=== PATIENT | male | born 1985 | race Caucasian/White ===

== ENCOUNTER 2019-05-03 08:44 | Emergency (ER) | payer BC, SELFPAY ==
[2019-05-03 08:54] VITALS: BP 154/95; PULSE 63; TEMP 36.4; O2SAT 98
--- NOTE | 2019-05-03 08:58 | ED.GENADUL_ITS ---
Discharge Plan Disposition Patient Disposition: HOME Condition: Good Discharge Details Chief Complaint: EyeProblem Clinical Impression: Conjunctivitis of left eye Primary Care Provider: None,None ED Provider: Curry Ybarra Home Meds and New Rx's Prescriptions: No Action amoxicillin-pot clavulanate [Augmentin] 1 EACH tablet 1 ea PO BID Qty: 10 RF: 0 Discharge Instructions Instructions: Conjunctivitis (ED) Additional Instructions: Please apply the erythromycin ointment to your left eye and the thin strip 3-4 times daily. Please use a warm compress to your left eye to help with any discharge. Please follow-up with your staff anesthetist shortly. If you notice any worsening of your symptoms, or any new symptoms such as vomiting, diarrhea, fever, chills, shortness of breath, chest pain, numbness, weakness, or fainting , please return immediately to the emergency department for reevaluation. Please follow up with your primary care provider as soon as possible for reassessment and reevaluation. As always, it was a pleasure participating in your medical care today. Medical Decision Making This is a pleasant 34-year-old male whose tetanus status is up-to-date who does not wear contact lenses who presents for evaluation of mild redness in her left eye and mild discharge. He had recent URI-like symptoms. Exam d emonstrates a small minimal abrasion in the 10 to 11 o'clock position on the lateral aspect of the pupil. Eversion of the lids for upper and lower shows no retained foreign bodies. He does have a small amount of goopy discharge. Symptoms are concerning for mild abrasion in conjunction with mild conjunctivitis of the left eye. Erythromycin ointment was given here, the remainder of his exam was unremarkable. Patient will be discharged home. Recommend close follow-up with his staff anesthetist. I have extensively reviewed the treatment plan and discharge instructions with the patient. I have addressed all patient concerns at this time. The patient was made aware of what symptoms to monitor for that would warrant a return to the emergency department. Discussed the plan with the patient, they demonstrate verbal understanding and agreement with our assessment and plan at this time. HPI General Date/Time Provider Initiated Documentation: 05/03/19 08:54 . HPI Narrative: 34-year-old male with no significant past medical history who presents today for evaluation of left eye discharge. Last few days he has had mild cough runny nose and congestion, this is resolved but has then led to mild redness and goopy discharge that started 24 hours ago in his left eye. He does admit to a small irritation in the 3 o'clock position of his eye. He does not use contact lenses. He is up-to-date for his tetanus. He denies any recent welding, metal work, or foreign body that he is aware of in his eye. No other complaints at this time. No visual changes. He has used Visine but this is not improved his symptoms. Related Data Home Medications Medication Instructions Recorded Confirmed amoxicillin-pot clavulanate 1 ea PO BID #10 tablet 01/15/16 [Augmentin 875-125 Tablet] Previous Rx's Medication Instructions Recorded amoxicillin-pot clavulanate 1 ea PO BID #10 tablet 01/15/16 [Augmentin 875-125 Tablet] Allergies Allergy/AdvReac Type Severity Reaction Status Date / Time No Known Allergies Allergy Unverified 01/15/16 10:09 General Stated Complaint: EyeProblem DUGLAS: 4 Review of Systems All systems reviewed & are unremarkable except as noted in HPI and below PFSH Social History Smoking/Tobacco Use Status: Never Alcohol Intake: current Alcohol Intake frequency: a few times a week Alcohol type: beer Drug use: Occasionally Substance use type: marijuana Do you feel safe at home: Yes Do you feel safe in your relationship?: Yes Exam Narrative Exam Narrative: 1.Const: Well-nourished, Well-developed, appearing stated age 2.Eyes: PERRL, notable left conjunctival injection. Right eye: : EOMI, PERRL, Peripheral vision intact. Normal vision. No nystagmus. Fundoscopic exam shows normal optic discs and normal vasculature. No clinical signs of septal/orbital cellulitis, no redness around the eye, no proptosis. No hyphema, no signs of trauma around the eye, no periorbital emphysema. No sluggishness of the pupil. No ophthalmoplegia. No afferent pupillary defect. Fluorescein exam is positive for small abrasion and uptake in the 10 o'clock position, negative Cristi sign. Mild goopy discharge in the left eye. 3.ENT: Atraumatic external nose and ears. Moist MM. Neck: Symmetric, trachea midline, No thyromegaly. 4.CVS: +S1/S2, No murmurs or gallops. Peripheral pulses 2+ and equal in all extremities. Brisk capillary refill in all extremities. 5.RESP: Unlabored respiratory effort. Clear to auscultation bilaterally. No wheezes rales or rhonchi 6.GI: Soft, Nontender/Nondistended, No hepatosplenomegaly. No guarding or rebound. 7.MSK: Normocephalic/Atraumatic, Extremities w/o deformity or ttp No cyanosis or clubbing, Normal movement of all extremities 8.Skin: Warm, Dry. No rashes or lesions. 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 Sensation grossly intact, no focal kash rologic deficits. 10.Psych: (AAO) x3. Appropriate mood and affect Course Vital Signs Vital signs: Vital Signs Temperature 36.4 C L 05/03/19 08:54 Pulse 63 05/03/19 08:54 Blood Pressure 154/95 H 05/03/19 08:54 Pulse Oximetry 98 05/03/19 08:54 Temperature 36.4 C L 05/03/19 08:54 Temperature Source Skin 05/03/19 08:54 Pulse 63 05/03/19 08:54 Blood Pressure 154/95 H 05/03/19 08:54 Blood Pressure Position Sitting 05/03/19 08:54 Pulse Oximetry 98 05/03/19 08:54 Oxygen Delivery Method Room Air 05/03/19 08:54 Oxygen Flow Rate 0 05/03/19 08:54
[2019-05-03 09:08] VITALS: BP 154/95; PULSE 63; TEMP 36.4; O2SAT 98
== END 2019-05-03 09:12 | disposition home or self-care (01) ==
PROVIDERS: Emergency Provider Student in an Organized Health Care Education/Training Program
DX: H10.022 Other mucopurulent conjunctivitis, left eye (principal); S05.02XA Injury of conjunctiva and corneal abrasion without foreign body, left eye, initial encounter; X58.XXXA Exposure to other specified factors, initial encounter
CPT/HCPCS: 99283

== ENCOUNTER 2019-05-04 11:53 | Emergency (ER) | payer BC, SELFPAY ==
[2019-05-04 12:11] VITALS: BP 157/88; PULSE 70; RESP 18; TEMP 36.7; O2SAT 100
--- NOTE | 2019-05-04 12:17 | ED.GENADUL_ITS ---
Discharge Plan Disposition Patient Disposition: HOME Condition: Good Discharge Details Chief Complaint: GenMedical Clinical Impression: Acute conjunctivitis of right eye Primary Care Provider: None,None ED Provider: Curry Ybarra Home Meds and New Rx's Prescriptions: New erythromycin 5 mg/gram (0.5 %) ointment 0.5 inch OP TID Qty: 1 RF: 0 Discharge Instructions Instructions: Conjunctivitis (ED) Additional Instructions: Please continue to place a thin strip in your right eye as well 3 times per day. If you notice any worsening of your symptoms, or any new symptoms such as vomiting, diarrhea, fever, chills, shortness of breath, chest pain, numbness, weakness, or fainting , please return immediately to the emergency department for reevaluation. Please follow up with your primary care provider as soon as possible for reassessment and reevaluation. As always, it was a pleasure participating in your medical care today. Medical Decision Making Pleasant 34-year-old male with no significant past medical history, no contact lens use, presents today for evaluation of conjunctivitis in his right eye. He was seen yesterday for conjunctivitis in his left eye, given erythromycin ointment, and he has notable improvement of his symptoms. He had a small corneal abrasion at that time 2, which is otherwise unremarkable. He does not wear contact lenses. Physical exam today demonstrates notable improvement of his left eye, however will be discharged mild conjunctival irritation in his right eye. No other abnormalities, no other concerning red flags of fever chills or pain with moving his eye. No other concerning abnormalities. Patient will be given additional erythromycin ointment for his right eye as well as continuation for the left although the left is notably improved. Discussed red flags for which to return. I have extensively reviewed the treatment plan and discharge instructions with the patient. I have addressed all patient concerns at this time. The patient was made aware of what symptoms to monitor for that would warrant a return to the emergency department. Discussed the plan with the patient, they demonstrate verbal understanding and agreement with our assessment and plan at this time. HPI General Date/Time Provider Initiated Documentation: 05/04/19 11:54 . HPI Narrative: Pleasant 34-year-old male with no significant past medical history, no contact lens use, presents today for evaluation of conjunctivitis in his right eye. He was seen yesterday for conjunctivitis in his left eye, given erythromycin ointment, and he has notable improvement of his symptoms. He had a small corneal abrasion at that time 2, which is otherwise unremarkable. He does not wear contact lenses. Physical exam today demonstrates notable improvement of his left eye, however will be discharged mild conjunctival irritation in his right eye. No other abnormalities, no other concerning red flags of fever chills or pain with moving his eye. Related Data Home Medications Medication Instructions Recorded Confirmed erythromycin 0.5 inch OP TID #1 gm 05/04/19 Previous Rx's Medication Instructions Recorded erythromycin 0.5 inch OP TID #1 gm 05/04/19 Allergies Allergy/AdvReac Type Severity Reaction Status Date / Time No Known Allergies Allergy Unverified 05/04/19 12:20 General Stated Complaint: GenMedical DUGLAS: 5 Review of Systems All systems reviewed & are unremarkable except as noted in HPI and below PFSH Social History Smoking/Tobacco Use Status: Never Alcohol Intake: current Alcohol Intake frequency: a few times a week Alcohol type: beer Drug use: Occasionally Substance use type: marijuana Do you feel safe at home: Yes Do you feel safe in your relationship?: Yes Exam Narrative Exam Narrative: 1.Const: Well-nourished, Well-developed, appearing stated age 2.Eyes: PERRL, bilateral conjunctivitis worse on the right than the left, no significant erythema or edema of the upper or lower lids. Retraction of the lid shows no evidence of foreign body. Symptoms clinically consistent with bacterial conjunctivitis 3.ENT: Atraumatic external nose and ears. Moist MM. Neck: Symmetric, trachea midline, No thyromegaly. 4.CVS: +S1/S2, No murmurs or gallops. Peripheral pulses 2+ and equal in all extremities. Brisk capillary refill in all extremities. 5.RESP: Unlabored respiratory effort. Clear to auscultation bilaterally. No wheezes rales or rhonchi 6.GI: Soft, Nontender/Nondistended, No hepatosplenomegaly. No guarding or rebound. 7.MSK: Normocephalic/Atraumatic, Extremities w/o deformity or ttp No cyanosis or clubbing, Normal movement of all extremities 8.Skin: Warm, Dry. No rashes or lesions. 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 Sensation grossly intact, no focal neurologic deficits. 10.Psych: (AAO) x3. Appropriate mood and affect Course Vital Signs Vital signs: Vital Signs Temperature 36.7 C 05/04/19 12:11 Pulse 70 05/04/19 12:11 Respiratory Rate 18 05/04/19 12:11 Blood Pressure 157/88 H 05/04/19 12:11 Pulse Oximetry 100 05/04/19 12:11 Temperature 36.7 C 05/04/19 12:11 Temperature Source Skin 05/04/19 12:11 Pulse 70 05/04/19 12:11 Respiratory Rate 18 05/04/19 12:11 Respiratory Effort 05/04/19 12:14 Respiratory Depth Normal 05/04/19 12:14 Respiratory Pattern Normal 05/04/19 12:14 Blood Pressure 157/88 H 05/04/19 12:11 Pulse Oximetry 100 05/04/19 12:11 Oxygen Delivery Method Room Air 05/04/19 12:11 Oxygen Flow Rate 0 05/04/19 12:11 Pain Level 0 05/04/19 12:11
[2019-05-04] MEDS: Erythromycin Ophth Oint 3.5 GM TUBE OU (12:21)
== END 2019-05-04 12:22 | disposition home or self-care (01) ==
PROVIDERS: Emergency Provider Student in an Organized Health Care Education/Training Program
DX: H10.021 Other mucopurulent conjunctivitis, right eye (principal)
CPT/HCPCS: 99281; 99283; 99282

== ENCOUNTER → 2023-09-03 15:59 | Outpatient (CLI) | payer BC, SELFPAY ==
--- NOTE | 2023-09-03 15:54 | DI.RAD_ITS ---
Exam(s) XR HAND LT COMPLETE EXAM: XR HAND LT COMPLETE CLINICAL HISTORY: Dog bite, W54.0XXA: evaluate bony lesion and/or osteomyletits and fx. TECHNIQUE: 2D digital imaging was performed of the left hand. Three views were obtained. AP, later al and oblique views were obtained. COMPARISON: No exams were available for comparison FINDINGS: BONES: No acute fracture is present. No bony destructive lesion is seen. JOINTS: No dislocation present. SOFT TISSUE: There is soft tissue swelling of the middle finger. No radiopaque foreign body is ident ified. IMPRESSION: Soft tissue swelling of the middle finger. Otherwise negative examination. DATA REPOSITORY: RADIATION DOSE DELIVERED:
== END ==
PROVIDERS: Visit Provider Nurse Practitioner Family
DX: S69.82XA Other specified injuries of left wrist, hand and finger(s), initial encounter (principal); M79.89 Other specified soft tissue disorders; W54.0XXA Bitten by dog, initial encounter
CPT/HCPCS: 73130

== ENCOUNTER 2023-09-03 16:51 | Outpatient (REF) | payer BC, SELFPAY | END 2023-09-03 16:52 | disposition home or self-care (01) | LOC: LBN 16:51 | PROVIDERS: Visit Provider Nurse Practitioner Family | DX: S61.251A Open bite of left index finger without damage to nail, initial encounter (principal); X58.XXXA Exposure to other specified factors, initial encounter; L08.89 Other specified local infections of the skin and subcutaneous tissue | CPT/HCPCS: 87077; 87070; 87186; 87205 ==

== ENCOUNTER 2024-02-14 17:44 | Emergency (ER) | payer BC, SELFPAY ==
[2024-02-14] VITALS (18 sets, daily range): BP systolic 135–150; BP diastolic 42–103; PULSE 61–70; RESP 16–25; TEMP 36.4; O2SAT 96–99
--- NOTE | 2024-02-14 17:45 | RT.EKG_ITS ---
APPROVED REPORT Exam: Resting ECG Reason for Exam: syncope Patient Location: E HR:62 bpm ECG Measurements Heart Rate 62 AXIS FL 148 P 24 QRSd 140 QRS 32 QT 410 T 42 QTc 416 Conclusion Sinus rhythm 62 RBBB no stemi
[2024-02-14 18:33] LABS: Abs Immature Grans 0.04 10^3/uL (0.0-0.06); Absolute Basophil Count 0.06 10^3/uL (0.0-0.2); Absolute Lymphocyte Count 1.37 10^3/uL (1.2-3.4); Absolute Monocyte Count 0.74 10^3/uL (0.1-0.8); Basophils % 0.5 %; Eosinophils % 0.4 %; HCT 41.1 % (40.0-50.0); HGB 14.5 g/dL (13.5-17.5); Immature Grans % 0.4 %; Lymphocytes % 12.1 %; MCH 30.6 pg (27.0-33.0); MCHC 35.3 % (32.0-36.0); MCV 87 fL (80-95); MPV 9.9 fL (8.0-11.0); Monocytes % 6.5 %; Neutrophils % 80.1 %; Platelet Count 207 10^3/uL (130-400); RBC 4.74 10^6/uL (4.36-5.78); RDW 12.2 % (11.8-14.1); WBC 11.36 10^3/uL (4.4-10.8)
[2024-02-14 18:34] LABS: Absolute Eosinophil Count 0.05 10^3/uL (0.0-0.7)
[2024-02-14 18:49] LABS: Anion Gap 9.7 mmol/L (3-11); BUN 20 mg/dL (7-18); CO2 26.3 mmol/L (21.0-32.0); CREATININE 1.3 mg/dL (0.70-1.30); Calcium 8.9 mg/dL (8.5-10.1); Chloride 106 mmol/L (98-107); Estimated GFR 72.56 (mL/min/1.73m2); Glucose 118 mg/dL (74-106); Potassium 3.4 mmol/L (3.5-5.1); Sodium 142 mmol/L (136-145)
[2024-02-14] MEDS: Potassium Chloride Liquid 20 MEQ PKT 40 MEQ PO (19:26)
--- NOTE | 2024-02-14 19:31 | ED.GENADUL_ITS ---
Discharge Plan Disposition Patient Disposition: Home Discharge Details Clinical Impression: Syncope, Gastrocnemius muscle tear, Hypokalemia Primary Care Provider: Unknown,Unknown ED Provider: Laron Junior Home Meds and New Rx's Prescriptions: No Action diazepam [Valium] 10 mg tablet 10 mg PO ONCE PRN (Reason: premedication) Qty: 1 0RF Rx Instructions: Take 1 hour prior to procedure. 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 You can start taking your blood pressure every day and keep a log for your upcoming appointment * Your kidney function is on the upper limit of normal but still within normal limits. This may be a chronic problem or be related to dehydration. Please increase your water intake. Your blood work will be repeated with your PCP * Your potassium was slightly low today and you were given oral replacement * Return if you have persistent symptoms, chest pain headache or other concerns * Use crutches to help with ambulation with your calf pain. This is likely a partial tear in the muscle and should heal on its own. If it is not improving, a primary care provider can order an MRI * You have been placed on an ER follow-up list and someone should contact you with an appointment in 1 to 2 weeks and establish care with primary care. HPI General Date/Time Provider Initiated Documentation: 02/14/24 17:59 . Limitations to Documentation: no limitations . Information obtained by: patient . HPI Narrative: 38-year-old gentleman without significant past medical history presents for eval uation after a syncopal episode. The patient reports that he was urinating and when he finished he fell the room start to close it and his eyes started to blackout and he knew that he was coming out. He then woke up on the floor. He denies any chest pain, head trauma, headache or visual change. Reports that he did not feel great when he got up, but was not confused. There is no urinary incontinence. He states that since then he has felt a little bit lightheaded. He states earlier in the day at work he had a twisting motion and felt a pop in his calf and since that time he has been hobbling around because of pain located in the right calf. Related Data Home Medications ?Medication ?Instructions ?Recorded ?Confirmed diazepam 10 mg tablet (Valium) 10 mg PO ONCE PRN premedication #1 01/27/24 02/14/24 tab Previous Rx's ?Medication ?Instructions ?Recorded diazepam 10 mg tablet (Valium) 10 mg PO ONCE PRN premedication #1 01/27/24 tab Allergies Allergy/AdvReac Type Severity Reaction Status Date / Time No Known Allergies Allergy Unverified 02/14/24 18:18 General Stated Complaint: Orthopedic DUGLAS: 3 Exam Narrative Exam Narrative: Review of Systems: All systems reviewed & are unremarkable except as noted in HPI and below Well-developed, no acute distress NCAT PERRL, normal conjunctiva RRR no murmur No orthostatic vital sign changes Unlabored respiratory effort clear bilaterally Nondistended abdomen soft nontender Extremities w/o deformity. Right calf with some point tenderness no swelling or edema, Achilles intact no focal neurologic deficits Course Vital Signs Vital signs: Vital Signs Temperature 36.4 C L 02/14/24 17:47 Pulse 69 02/14/24 17:47 Respiratory Rate 18 02/14/24 17:47 Blood Pressure 140/103 H 02/14/24 17:47 Pulse Oximetry 98 02/14/24 17:47 Temperature 36.4 C L 02/14/24 17:47 Temperature Source Temporal Artery Scan 02/14/24 17:47 Pulse 63 02/14/24 19:16 Pulse 64 02/14/24 19:20 Respiratory Rate 18 02/14/24 19:20 Respiratory Effort Normal, Non-Labored 02/14/24 18:07 Blood Pressure 150/64 H 02/14/24 19:16 Blood Pressure Mean 94 02/14/24 19:16 Blood Pressure Position Sitting 02/14/24 17:47 Pulse Oximetry 97 02/14/24 19:20 Oxygen Delivery Method Room Air 02/14/24 17:47 Oxygen Flow Rate 0 02/14/24 17:47 Lab/Test Results Lab/Test Results: Laboratory Tests Range/Units 02/14/24 18:30 WBC (4.4-10.8) 10^3/uL 11.36 H RBC (4.36-5.78) 10^6/uL 4.74 Hgb (13.5-17.5) g/dL 14.5 Hct (40.0-50.0) % 41.1 MCV (80-95) fL 87 MCH (27.0-33.0) pg 30.6 MCHC (32.0-36.0) % 35.3 RDW (11.8-14.1) % 12.2 Plt Count (130-400) 10^3/uL 207 MPV (8.0-11.0) fL 9.9 Immature Gran % % 0.4 Neutrophils % % 80.1 Lymphocytes % % 12.1 Monocytes % % 6.5 Eosinophils % % 0.4 Basophils % % 0.5 Nucleated RBC % (0.0-0.3) % 0.0 Absolute Neutrophils (1.2-6.7) 10^3/uL 9.10 H Absolute Lymphocytes (1.2-3.4) 10^3/uL 1.37 Absolute Monocytes (0.1-0.8) 10^3/uL 0.74 Absolute Eosinophils (0.0-0.7) 10^3/uL 0.05 Absolute Basophils (0.0-0.2) 10^3/uL 0.06 Sodium (136-145) mmol/L 142 Potassium (3.5-5.1) mmol/L 3.4 L Chloride (98-107) mmol/L 106 Carbon Dioxide (21.0-32.0) mmol/L 26.3 Anion Gap (3-11) mmol/L 9.7 BUN (7-18) mg/dL 20 H Creatinine (0.70-1.30) mg/dL 1.3 Est GFR (CKD-EPI 2020) (mL/min/1.73m2) 72.56 Glucose (74-106) mg/dL 118 H Calcium (8.5-10.1) mg/dL 8.9 Medical Decision Making Urgent evaluation of a syncopal episode. Likely provoked micturition syncope. The patient has no orthostatic vital sign changes. He has a normal neurologic exam and did not sustain any head trauma during his syncopal event. EKG was obtained and reviewed and independently interpreted: Sinus 62 right bundle branch block. No priors for comparison. The patient thinks he might be a little bit dehydrated. Blood work was obtained, no leukocytosis or anemia. The potassium level was slightly low when he was given oral replacement. His BUN and creatinine are on the upper limits of normal. He has no prior lab work so it is unclear if this is an acute change or an ongoing process. Given his concerns for dehydration. I recommend increasing oral hydratio at home. I have placed the patient on an ER follow-up for blood pressure recheck as well as dorinda al function recheck. He does not have primary care and they will establish primary care with him. Return precautions advised. For his right calf pain, I suspect this is likely a partial gastroc tear. The Achilles is intact. He was provided crutches to use as needed. Weightbearing as tolerated. Recommend NSAIDs ice elevation. He may need follow-up with outpatient MRI if the symptoms are not improving. Quality:SDOH Health Related Social Needs: No Data to Display PFSH All Active Problems Hypokalemia (Acute) Gastrocnemius muscle tear (Acute) Syncope (Chronic) Acute conjunctivitis of right eye (Acute) Conjunctivitis of left eye (Acute) Social History Smoking/Tobacco Use Status: Never Smoking risk assessment performed?: Yes Alcohol Intake: current Alcohol Intake frequency: a few times a week Alcohol type: beer Drug use: Occasionally Substance use type: marijuana Do you feel safe at home: Yes Do you feel safe in your relationship?: Yes PAWSS Have you Been Recently Intoxicated or Drunk Within the Last 30 days?: No Have you Ever Experienced Previous Episodes of Alcohol Withdrawal?: No Have you ever Experienced Withdrawal Seizures?: No Have you ever Experienced Delirium Tremens(DT)s?: No Have you ever undergone Alcohol Rehabilitation Treatment (i.e, inpt ot outpatient treatment programs)?: No Have you ever Experienced Blackouts?: No Have you ever Combined Alcohol with other Downers within the last 90 days?: No Have you ever Combined Alcohol with any other Substance of Abuse during the last 90 days?: No Positive Blood Alcohol level on Presentation? [PCS.BAL]: No Evidence of Increased Autonomic Activity (i.e. HR>120, tremor, sweating, agitation, nausea)?: No Result: 0
--- NOTE | 2024-02-15 08:22 | NUR.NOTE ---
Access chart to get the discharge diagnosis for [facility] paperwork. Nursing Note:
== END 2024-02-14 19:29 | disposition home or self-care (01) ==
PROVIDERS: Emergency Provider Emergency Medicine
DX: S86.119A Strain of other muscle(s) and tendon(s) of posterior muscle group at lower leg level, unspecified leg, initial encounter (principal); E87.6 Hypokalemia; R55 Syncope and collapse; I10 Essential (primary) hypertension; X58.XXXA Exposure to other specified factors, initial encounter
CPT/HCPCS: 80048; 93005; 85025; 93010

== ENCOUNTER 2024-02-23 17:19 | Outpatient (REF) | payer BC, SELFPAY ==
[2024-02-23 18:50] LABS: Bilirubin Negative (Negative); Blood Negative (Negative); Clarity Clear (Clear); Glucose Negative (Negative); Ketones Negative (Negative); Leukocyte Esterase Negative (Negative); Nitrite Negative (Negative); Specific Gravity <= 1.005 (1.005-1.025); Urobilinogen 0.2 mg/dL (Up to 0.2)
[2024-02-23 19:07] LABS: ALT 54 U/L (16-63); AST 26 U/L (15-37); Albumin 4.9 g/dL (3.4-5.0); Alkaline Phosphatase 65 U/L (46-116); Anion Gap 9.8 mmol/L (3-11); BUN 23 mg/dL (7-18); Bilirubin, Total 0.63 mg/dL (0.2-1.0); CO2 26.2 mmol/L (21.0-32.0); CREATININE 1.2 mg/dL (0.70-1.30); Calcium 9.9 mg/dL (8.5-10.1); Calculated LDL 196 mg/dL (<100); Chloride 104 mmol/L (98-107); Cholesterol 274 mg/dL (<200); Estimated GFR 79.88 (mL/min/1.73m2); Glucose 74 mg/dL (74-106); HDL Cholesterol 57 mg/dL (40-60); Potassium 3.9 mmol/L (3.5-5.1); Sodium 140 mmol/L (136-145); Total Protein 8.2 g/dL (6.4-8.2); Triglyceride 109 mg/dL (<150)
== END 2024-02-23 17:20 | disposition home or self-care (01) ==
LOC: LBN 17:19
PROVIDERS: PCP Family Medicine; Visit Provider Family Medicine
DX: Z00.00 Encounter for general adult medical examination without abnormal findings (principal); R03.0 Elevated blood-pressure reading, without diagnosis of hypertension; Z13.6 Encounter for screening for cardiovascular disorders; R30.0 Dysuria
CPT/HCPCS: 80053; 80061; 81003

== ENCOUNTER 2024-09-14 14:38 | Emergency (ER) | payer BC, SELFPAY ==
[2024-09-14 14:43] VITALS: BP 159/78; PULSE 66; RESP 20; TEMP 36.6; O2SAT 98
--- NOTE | 2024-09-14 15:45 | DI.RAD_ITS ---
Exam(s) XR SHOULDER RT COMPLETE 2+V EXAM: XR SHOULDER RT COMPLETE 2+V CLINICAL HISTORY: Pain. TECHNIQUE: 2D digital imaging was performed. Five views. COMPARISON: No exams were available for comparison FINDINGS: BONES: No acute fracture is present. No bony destructive lesion is seen. JOINTS: No dislocation present. There are mild degenerative changes of the AC joint. There are degenerative changes of the glenohumeral joint the sub small subchondral cysts seen at the inferior glenoid. There is mild spurring at the inferior humeral head and greater tuberosity. SOFT TISSUE: Normal. IMPRESSION: Degenerative changes. No acute abnormality. DATA REPOSITORY: RADIATION DOSE DELIVERED:
--- NOTE | 2024-09-14 15:45 | DI.RAD_ITS ---
Exam(s) XR CERVICAL SP MANCUSO TRAUMA 2-3V EXAM: XR CERVICAL SP MANCUSO TRAUMA 2-3V CLINICAL HISTORY: Pain. TECHNIQUE: 2D digital imaging was performed. Three views. COMPARISON: No exams were available for comparison FINDINGS: BONES: No fracture or destructive lesion. Vertebral bodies are unremarkable. DISKS: Intervertebral disc spaces are maintained. ALIGNMENT: Cervical spinal alignment is within normal limits. The odontoid and atlantoaxial articulations are normal. SOFT TISSUE: Normal. The lung apices are clear. IMPRESSION: Unremarkable radiographs of the cervical spine. DATA REPOSITORY: RADIATION DOSE DELIVERED:
--- NOTE | 2024-09-14 15:54 | ED.GENADUL_ITS ---
Discharge Plan Disposition Patient Disposition: Home Condition: Stable Discharge Details Clinical Impression: Degenerative joint disease of right shoulder Primary Care Provider: Petrona Tamez ED Provider: Keyonna Kearney Home Meds and New Rx's Prescriptions: New diclofenac sodium [Solaraze] 3 % gel 1 applic topical BID PRN (Reason: Joint Pain) Qty: 100 0RF Rx Instructions: Apply to affected area twice daily as needed cyclobenzaprine 10 mg tablet 10 mg PO TID PRN (Reason: muscle spasm) Qty: 10 0RF Rx Instructions: Take 1 tablet orally up to 3 times daily as needed for muscle spasm. Discharge Instructions Instructions: Osteoarthritis Additional Instructions: X-rays of your neck are within normal limits. The shoulder X-rays show degenerative changes (arthritis) and some mild bone spurring. I do believe this is what is causing your pain. Aprescription for a antiinflammatory topical gel was sent to the pharmacy on file and a muscle relaxer. Please continue taking the Tylenol and Ibuprofen as needed, apply the topical Diclofenac gel as directed and muscle relaxers as needed. Alternate ice and heat. If you have continued pain after the above measures please follow up with orthopedics for further imaging and evaluation. Follow up with primary care provider in 3-5 days. Return to ED sooner if any worsening or concerns. Please take Tylenol or Ibuprofen with food every 4-6 hours as needed for pain and swelling. Thank you for allowing us to care for you today. Referrals: Petrona Tamez MD [Primary Care Provider, Medicine] - Return if symptoms worsen Twan Garcias MD [ [facility] STAFF PHYSICIAN, Orthopaedic Surgical] - 2 weeks Clinical Impression: Degenerative joint disease of right shoulder Discharge Data Discharge Date/Time-TO BE ENTERED AT DEPARTURE: 09/14/24 17:29 HPI General Mode of arrival: ambulatory . Date/Time Provider Initiated Documentation: 09/14/24 14:53 . Limitations to Documentation: no limitations . Information obtained by: patient, RN notes reviewed and old records reviewed . HPI Narrative: 39-year-old male presents with chief complaint shoulder pain which has been gradually increasing over the last 3 weeks. Patient states last night it incr eased and he saw a massage therapist today who recommended he get X-rays on his cervical spine. He describes pain that radiates down into his right thumb from his anterior shoulder and right prarspinal neck. Does have a history of shoulder surgery in the past. Denies any other associated symptoms or concerns. Has been taking Tylenol and Ibuprofen. Related Data Home Medications ?Medication ?Instructions ?Recorded ?Confirmed cyclobenzaprine 10 mg tablet 10 mg PO TID PRN muscle s pasm #10 09/14/24 tabs diclofenac sodium 3 % topical gel 1 applic topical BID PRN Joint 09/14/24 (Solaraze) Pain #100 grams Previous Rx's ?Medication ?Instructions ?Recorded cyclobenzaprine 10 mg tablet 10 mg PO TID PRN muscle s pasm #10 09/14/24 tabs diclofenac sodium 3 % topical gel 1 applic topical BID PRN Joint 09/14/24 (Solaraze) Pain #100 grams Allergies Allergy/AdvReac Type Severity Reaction Status Date / Time No Known Allergies Allergy Verified 09/14/24 14:50 General Stated Complaint: Orthopedic DUGLAS: 4 Review of Systems ENT Ears, Nose, Mouth, and Throat: Reports neck pain Musculoskeletal Musculoskeletal: Reports as per HPI, Reports arthralgias, Reports neck pain and Reports radiating pain into limb Exam Extrem Right upper extremity: shoulder/upper arm (Paraspinal neck pain and pain radiating down into the patient's right thumb) Details: normal to inspection and tenderness Location: of the A-C joint; no swelling, no crepitus, no deformity and no unusual warmth Course Vital Signs Vital signs: Vital Signs Temperature 36.6 C 09/14/24 14:43 Pulse 66 09/14/24 14:43 Respiratory Rate 20 09/14/24 14:43 Blood Pressure 159/78 H 09/14/24 14:43 Pulse Oximetry 98 09/14/24 14:43 Temperature 36.6 C 09/14/24 14:43 Temperature Source Oral 09/14/24 14:43 Pulse 66 09/14/24 14:43 Respiratory Rate 20 09/14/24 14:43 Blood Pressure 159/78 H 09/14/24 14:43 Blood Pressure Position Sitting 09/14/24 14:43 Pulse Oximetry 98 09/14/24 14:43 Oxygen Delivery Method Room Air 09/14/24 14:43 Oxygen Flow Rate 0 09/14/24 14:43 Medical Decision Making 39-year-old male presents with chief complaint shoulder pain which has been gradually increasing over the last 3 weeks. Patient states last night it increased and he saw a massage therapist today who recommended he get X-rays on his cervical spine. He describes pain that radiates down into his right thumb from his anterior shoulder and right prarspinal neck. Does have a history of shoulder surgery in the past. Denies any other associated symptoms or concerns. Has been taking Tylenol and Ibuprofen. XRay Cspine and Xray right shoulder ordered. Lidocaine patch. Diff Dx includes AC joint dislocation, DJD, Rotator cuff, Cervicalgia. C-spine x-ray within normal limits, shoulder x-ray shows degenerative joint disease and some spurring. Patient given Flexeril and topical diclofenac prescription and instructed to follow-up with orthopedics if continued pain instructed to alternate ice and heat. Patient discharged in hemodynamically stable condition vital signs stable. This text was generated using [employer] system, please disregard any oddities of phrase or misspellings. Imaging Data Radiologic Study: Imaging: X-Ray Radiologist's impression: XR SHOULDER RT COMPLETE 2+V EXAM: XR SHOULDER RT COMPLETE 2+V CLINICAL HISTORY: Pain. TECHNIQUE: 2D digital imaging was performed. Five views. COMPARISON: No exams were available for comparison FINDINGS: BONES: No acute fracture is present. No bony destructive lesion is seen. JOINTS: No dislocation present. There are mild degenerative changes of the AC joint. There are degenerative changes of the glenohumeral joint the sub small subchondral cysts seen at the inferior glenoid. There is mild spurring at the inferior humeral head and greater tuberosity. SOFT TISSUE: Normal. IMPRESSION: Degenerative changes. No acute abnormality. Radiologic Study #2: Imaging: X-Ray Radiologist's impression: EXAM: XR CERVICAL SP MANCUSO TRAUMA 2-3V CLINICAL HISTORY: Pain. TECHNIQUE: 2D digital imaging was performed. Three views. COMPARISON: No exams were available for comparison FINDINGS: BONES: No fracture or destructive lesion. Vertebral bodies are unremarkable. DISKS: Intervertebral disc spaces are maintained. ALIGNMENT: Cervical spinal alignment is within normal limits. The odontoid and atlantoaxial articulations are normal. SOFT TISSUE: Normal. The lung apices are clear. IMPRESSION: Unremarkable radiographs of the cervical spine. PFSH All Active Problems (Updated 09/14/24 @ 16:55 by Keyonna Kearney NP) Degenerative joint disease of right shoulder (Acute) Hyperlipidemia (Acute) RBBB (right bundle branch block) (Acute) Elevated BP without diagnosis of hypertension (Acute) Medical History Steel plate in right upper extremity (~2001) Surgical History S/P shoulder surgery (~2004) dislocated, Isabel Sinclair, [facility], [place] Family History Mother No problems noted. Father No problems noted. Sister No problems noted. Maternal Grandfather Heart disease Diabetes Social History Smoking/Tobacco Use Status: Never Smoking risk assessment performed?: Yes Alcohol Intake: current Alcohol Intake frequency: a few times a month Alcohol type: beer Drug use: Daily Substance use type: marijuana Adopted: No Caregiver/Support person: No Household members: spouse and children Housing: house Number of Children: 2 number of grandchildren: 0 Communication Needs: None Education Level: college Do you need help understanding health information?: Never current occupation: self employed, owns a dog kennel in [place] Pets and animals: Yes Pets and animals: dog(s) Sexually active: Yes Do you think of yourself as: straight/heterosexual Current gender identity: male What is your relationship status?: How often do you talk on the phone with friends or family?: twice per week How often do you get together with friends or relatives?: twice per week How often do you attend yazdanism or evangelical services?: decline to answer Do you belong to any clubs or organized social groups?: decline to answer Panel score (0-1 are the most socially isolated patients): 2 NHANES result reviewed/action taken: Yes What type of physical activity do you participate in: walking, weight lifting and other Details: gym Duration: 60-90 minutes/day Frequency: 1-2 times per week Special luisito needs: No Seatbelt use: always Helmet use: Yes Helmet use: always Drive intox or ride w/intox steam train driver: No Firearms in home: Yes Firearms unloaded and locked: Yes Do you feel safe at home: Yes Do you feel safe in your relationship?: Yes
[2024-09-14] MEDS: Lidocaine 5% Patch 1 PATCH TP (16:51)
[2024-09-14 17:20] VITALS: BP 140/62; PULSE 65; RESP 20; O2SAT 98
== END 2024-09-14 17:29 | disposition home or self-care (01) ==
PROVIDERS: Emergency Provider Registered Nurse Emergency; PCP Family Medicine
DX: M19.011 Primary osteoarthritis, right shoulder (principal)
CPT/HCPCS: 99283; 99284; 72040; 73030

== ENCOUNTER 2025-02-23 12:01 | Outpatient (REF) | payer BC, SELFPAY ==
--- NOTE | 2025-02-23 11:45 | SKI_PTH ---
PATIENT: Raimundo Cook LOC: [facility] U#:[id number] AGE/SX: 39/M ROOM: RE02/23/[address]: Petrona Tamez : 1985 BED: DIS: 02/23/2025 SPEC #: [id number] RECD: 02/26/25 12:46 STATUS: AMRIT KINCAID #: [id number] KELLY: 02/23/25 11:[address]: Petrona Tamez DEPT: Surgical Specimen RECD BY: Shannon Whitehead Tissues: 1 - SKIN BIOPSY(SHAVE/PUNCH) Procedures: SKIN LEVEL 4 Comments: [id number]
== END 2025-02-23 12:02 | disposition home or self-care (01) ==
LOC: LBN 12:01
PROVIDERS: PCP Family Medicine; Visit Provider Family Medicine
DX: D22.5 Melanocytic nevi of trunk (principal)
CPT/HCPCS: 88305

== ENCOUNTER 2025-03-09 01:40 | Outpatient (CLI) | payer BC, SELFPAY ==
[2025-03-09 15:12] LABS: Anion Gap 8.9 mmol/L (3-11); BUN 16 mg/dL (9-23); CO2 28.1 mmol/L (20.0-31.0); Calcium 9.7 mg/dL (8.3-10.6); Chloride 106 mmol/L (98-107); Cholesterol 244 mg/dL (<200); Glucose 83 mg/dL (74-106); HDL Cholesterol 53 mg/dL (>40); Potassium 4.0 mmol/L (3.5-5.1); Sodium 143 mmol/L (136-145)
== END 2025-03-09 01:41 | disposition home or self-care (01) ==
LOC: LOS 01:40
PROVIDERS: PCP Family Medicine; Visit Provider Family Medicine
DX: Z13.6 Encounter for screening for cardiovascular disorders (principal); E78.5 Hyperlipidemia, unspecified; I10 Essential (primary) hypertension
CPT/HCPCS: 36415; 80048; 80061